=== PATIENT | male | born 1995 | race Caucasian/White ===

== ENCOUNTER 2016-04-19 20:56 | Emergency (ER) | payer OTHER ==
[~2016-04-19] VITALS: Ht 182.9 cm; Wt 91.0 kg
[~2016-04-19 20:56] MED LIST: AUGM875T PO; HYDR-3534 PO; HYDR-3535 PO; TOBRO LEFT EYE; ZOFR4TAB3 SL
[2016-04-19 20:59] VITALS: BP 158/108; PULSE 95; RESP 16; TEMP 98; O2SAT 99
[2016-04-19] MEDS ORDERED: DEXAMETHASONE SOD PHOS 20 MG/5 ML VIAL IM ONE (22:15)
[2016-04-19] MEDS ORDERED: PRED-503 PO (22:17)
[2016-04-19] MEDS ORDERED: ZANT300T PO (22:17)
--- NOTE | 2016-04-19 22:24 | PD ---
HPI Chief Complaint: Skin Problem Time Seen by Provider: 22:18 Travel History International Travel<30 days: No Contact w/Intl Traveler<30days: No Traveled to known affect area: No History of Present Illness HPI 21-year-old white male presents to emergency Department with complaints of a rash to his right arm, right trunk, right neck and face. He states that he just had surgery this past Monday in [place] by Dr. Patel for a right labral tear. He states that the day after his surgery he noticed this rash developing. It has progressively worsened and is extremely pruritic. He was seen by his doctor today who removed his stitches and advised him to stop his pain medication and antibiotics thinking that this may be a reaction. The patient has been using [id number] Benadryl and hydrocortisone cream without relief. He was instructed by his doctor to come in to the ER if symptoms do not start to improve and to consider getting a cortisone shot. The patient denies any fever or chills. No ear pain or sore throat. No glossal edema. No difficulty swallowing. No shortness of breath or wheezing. He denies any other rashes on his body. [facility] Past Medical History Narrative Medical Right Diminished Hearing: No Tetanus Vaccination: < 5 Years Influenza Vaccination: No Past Surgical History Narrative Surgical Right shoulder arthroscopy Social History Alcohol Use: No Tobacco Use: No Substance Use: No Allergies-Medications (Allergen,Severity, Reaction): Coded Allergies: No Known Allergies (Unverified , 04/19/16) Reported Meds & Prescriptions Reported Meds & Active Scripts Active No Active Prescriptions or Reported Medications Review of Systems Except as stated in HPI: all other systems reviewed are Neg Physical Exam Narrative GENERAL: This is a well-nourished, well-developed patient, in no apparent distress. SKIN: The patient has papular vesicular lesions on the right arm, right face, right neck, and right chest in a distribution consistent with his surgery preparation. He has increased erythema around the trocar holes as well as in the flexor crease of his right arm. There is serous drainage with honey comb crusting in these areas. There is no purulent drainage. No pustules. No significant warmth. HEAD: Atraumatic. Normocephalic. EYES: PERRL, EOMI, no discharge or injection. No scleral icterus. EARS: Clear NOSE: Nasal turbinates appear normal. THROAT: Mucosa pink and moist. Airway patent. No glossal edema. Normal voice. NECK: Trachea midline. supple, moves head freely. LUNGS: Clear to auscultation. CV: Regular in rhythm. ABDOMEN: Soft nontender. EXT: No clubbing cyanosis or edema. Data Data Last Documented VS Vital Signs Date Time Temp Pulse Resp B/P Pulse Ox O2 Delivery O2 Flow Rate FiO2 04/19/16 21:44 16 04/19/16 20:59 98.0 95 158/108 99 Orders Dexamethasone Inj (Decadron Inj) (04/19/16 22:15) [facility] Medical Decision Making Medical Screen Exam Complete: Yes Emergency Medical Condition: Yes Medical Record Reviewed: Yes Differential Diagnosis MDM: High Differential diagnoses: Abscess, folliculitis, cellulitis, lymphangitis, abrasion, contact dermatitis, allergic reaction Narrative Course I explained to the patient I suspect this is from the skin preparation for his surgery. It appears that he is having a significant localize contact type dermatitis such as a bad case of poison arelis. I explained to the patient that I do not believe that this is a allergic reaction to his antibiotics or pain medication. I've also discussed with him getting an injection of a steroid and being placed on oral steroids. He is aware that this will delay his healing process, increase his risk for infection and complications from his recent surgery. The patient verbally states understanding and still would like to continue with the injection and oral medication. He has contacted his certified personal chef who also agrees. The patient has been instructed to call his surgeon in the morning as well. This is severe contact dermatitis Patient given Decadron 10 mg IM, and prescriptions for oral prednisone and Zantac. Diagnosis Primary Impression: severe contact dermatitis Patient Instructions: General Instructions Additional Instructions: Rest. Resume your antibiotics and pain medication. Local wound care with soap and water. Keep your skin clean and dry. May use calamine lotion for any weeping. Oral prednisone as directed. Zantac. 50 mg of Benadryl [id number] every 4 hours. Recheck with your doctor in the next 48 hours. Return to the ER for any problems. Med/Other Pt SpecificInfo: Prescription(s) given Scripts Ranitidine (Zantac)300 Mg Gmo552 Mg PO BID #10 TAB Ref 0 Prov:Walter Weber MD 04/19/16 Prednisone (Deltasone)20 Mg Tab20 Mg PO TID #21 TAB Prov:Walter Weber MD 04/19/16 Disposition: 01 DISCHARGE HOME Condition: Stable Diogo Laughlin Apr 19, 2016 22:24
== END 2016-04-19 22:37 | disposition home or self-care (01) ==
LOC: NEPB 20:56
DX: L25.9 Unspecified contact dermatitis, unspecified cause (principal)
CPT/HCPCS: 96372; 99282; J1100